=== PATIENT | male | born 1965 | race African-American/Black ===

== ENCOUNTER 2020-12-02 10:31 | Inpatient (IN) | payer SELFPAY ==
[~2020-12-02] VITALS: Ht 167.6 cm; Wt 94.8 kg
[2020-12-02] MEDS ORDERED: ACETAMINOPHEN 325MG TABLET PO STA (10:55)
[2020-12-02] MEDS ORDERED: CEFTRIAXONE 1 G PREMIX 50 ML IV ONE (11:00)
[2020-12-02] MEDS ORDERED: DEXAMETHASONE 10 MG/ML VIAL IV ONE (11:00)
[2020-12-02] MEDS ORDERED: SODIUM CHLORIDE 0.9% 1,000 ML IV ONE (11:00)
[2020-12-02] MEDS ORDERED: AZITHROMYCIN 500 MG in DEXT 5% WATER 250 ML IV ONE (11:00)
[2020-12-02 12:05] LABS: BASOPHILS % 0.3 % (0.0-2.0); HEMATOCRIT. 41.5 % (42.0-52.0); HEMOGLOBIN. 14.3 g/dL (14.0-18.0); LYMPHOCYTES % 9.3 % (20.0-50.0); MEAN CORPUSCULAR HEMOGLOBIN 28.9 pg (28.0-32.0); MEAN CORPUSCULAR VOLUME 83.6 fL (80.0-94.0); MEAN PLATELET VOLUME 7.6 fl (7.4-10.4); NEUTROPHILS % 85.4 % (40.0-76.0); PLATELET 399 x1000/uL (130-400); RED BLOOD CELL COUNT 4.96 mill/uL (4.7-6.1); RED CELL DISTRIBUTION WIDTH 13.2 % (11.6-14.6)
[2020-12-02 12:14] LABS: CHLORIDE 97 mEq/L (98-107)
[2020-12-02 12:52] LABS: D-DIMER 23.66 mg/L FEU (<0.50); INR 1.1; PROTHROMBIN TIME 11.4 sec (9.6-11.0)
[2020-12-02 12:56] LABS: FIBRINOGEN > 900 mg/dL (200-400)
[2020-12-02] MEDS ORDERED: ALBUTEROL 6.7GM HFA INHALER ORI PRN ×2 (14:00→22:15)
[2020-12-02] MEDS ORDERED: CEFTRIAXONE 1 G PREMIX 50 ML IV SCH (14:00)
[2020-12-02] MEDS ORDERED: ENOXAPARIN 40MG/0.4ML SYR SUBCUT SCH (15:00)
[2020-12-02] MEDS ORDERED: ONDANSETRON HCL 4MG/2ML INJ IV PRN (16:30)
[2020-12-02] MEDS ORDERED: LORAZEPAM 2MG/ML CPJ IV PRN (16:30)
[2020-12-02] MEDS ORDERED: HYDRALAZINE 20MG/ML VIAL IV PRN (16:30)
[2020-12-02] MEDS ORDERED: MORPHINE SULFATE 2 MG/ML CPJ (NOT FOR IM USE) IV PRN (16:30)
[2020-12-02] MEDS ORDERED: MAGNESIUM/ALUMINUM HYDROXIDE/SIMETHICONE 30ML UDC PO PRN (16:30)
[2020-12-02] MEDS ORDERED: IPRATROPIUM/ALBUTEROL 0.5-3(2.5)MG/3ML NEB HHN PRN (16:30)
[2020-12-02] MEDS ORDERED: ACETAMINOPHEN 325MG TABLET PO PRN (16:30)
[2020-12-02] MEDS ORDERED: CLONIDINE 0.1MG TABLET PO PRN (16:30)
[2020-12-02] MEDS ORDERED: DIPHENHYDRAMINE 50MG/ML VIAL IV PRN (16:30)
[2020-12-02] MEDS ORDERED: HYDROCODONE/ACETAMINOPHEN 5/325MG TABLET PO PRN (16:30)
[2020-12-02] MEDS ORDERED: DOCUSATE SODIUM 100MG CAPSULE PO PRN (16:30)
[2020-12-02 16:35] VITALS: BP 135/89
[2020-12-02] MEDS: GUAIFENESIN 200MG/10ML SUGAR FREE UDC PO PRN ×2 (18:11→20:18)
[2020-12-02 18:46] LABS: CLARITY URINE CLOUDY (CLEAR); COLOR URINE DARK YELLOW (YELLOW); KETONES URINE TRACE (NEGATIVE); LEUKOCYTE ESTERASE URINE NEGATIVE (NEGATIVE); NITRITE URINE NEGATIVE (NEGATIVE); OCCULT BLOOD URINE 1+ (NEGATIVE); PROTEIN URINE 2+ (NEGATIVE); SPECIFIC GRAVITY URINE 1.027 (1.005-1.030)
[2020-12-02 20:00] VITALS: BP 132/80
[2020-12-02] MEDS: SODIUM CHLORIDE 0.9% INJ 3ML FLUSH IVF SCH (20:12)
[2020-12-03] VITALS: BP 126/78
[2020-12-03] MEDS: SODIUM CHLORIDE 0.9% INJ 3ML FLUSH IVF SCH ×3 (00:03→21:40)
[2020-12-03 04:08] VITALS: BP 128/68
[2020-12-03 06:42] LABS: BASOPHILS % 0.3 % (0.0-2.0); HEMATOCRIT. 35.9 % (42.0-52.0); HEMOGLOBIN. 12.5 g/dL (14.0-18.0); LYMPHOCYTES % 8.1 % (20.0-50.0); MEAN CORPUSCULAR HEMOGLOBIN 28.9 pg (28.0-32.0); MEAN CORPUSCULAR VOLUME 82.8 fL (80.0-94.0); MEAN PLATELET VOLUME 8.5 fl (7.4-10.4); MONOCYTES % 4.1 % (2.0-8.0); NEUTROPHILS % 87.5 % (40.0-76.0); PLATELET 350 x1000/uL (130-400); RED BLOOD CELL COUNT 4.33 mill/uL (4.7-6.1); RED CELL DISTRIBUTION WIDTH 13.2 % (11.6-14.6)
[2020-12-03 06:53] LABS: CHLORIDE 100 mEq/L (98-107)
[2020-12-03 08:00] VITALS: BP 106/67
[2020-12-03] MEDS: DEXAMETHASONE 4MG/ML 1ML VIAL IV SCH (08:36)
[2020-12-03] MEDS: CEFTRIAXONE 1,000 MG in DEXTROSE 5% WATER 50 ML IV SCH (08:37)
[2020-12-03] MEDS: ENOXAPARIN 30MG/0.3ML SYR SUBCUT SCH ×2 (08:37→20:47)
[2020-12-03] MEDS: GUAIFENESIN 200MG/10ML SUGAR FREE UDC PO PRN ×3 (09:22→23:49)
[2020-12-03] MEDS: AZITHROMYCIN 500 MG in DEXT 5% WATER 250 ML IV SCH (09:22)
[2020-12-03] MEDS ORDERED: CEFTRIAXONE 1,000 MG in DEXTROSE 5% WATER 50 ML IV SCH (11:00)
[2020-12-03] MEDS ORDERED: AZITHROMYCIN 500 MG in DEXT 5% WATER 250 ML IV SCH (11:00)
[2020-12-03 12:00] VITALS: BP 144/83
[2020-12-03] MEDS: BENZONATATE 100MG CAPSULE PO PRN ×2 (14:26→23:59)
[2020-12-03 16:00] VITALS: BP 117/82
[2020-12-03 20:00] VITALS: BP 113/68
[2020-12-03] MEDS ORDERED: IOHEXOL-350 100 ML BOTTLE ONE (23:29)
[2020-12-04] VITALS: BP 105/70
[2020-12-04] MEDS ORDERED: ENOXAPARIN 80MG/0.8ML SYR SUBCUT SCH (02:00)
[2020-12-04] MEDS: GUAIFENESIN 200MG/10ML SUGAR FREE UDC PO PRN ×3 (03:50→21:03)
[2020-12-04 04:00] VITALS: BP 112/76
[2020-12-04] MEDS: SODIUM CHLORIDE 0.9% INJ 3ML FLUSH IVF SCH ×3 (05:50→21:01)
[2020-12-04 06:31] LABS: BASOPHILS % 0.3 % (0.0-2.0); HEMATOCRIT. 38.2 % (42.0-52.0); HEMOGLOBIN. 13.1 g/dL (14.0-18.0); LYMPHOCYTES % 9.2 % (20.0-50.0); MEAN CORPUSCULAR HEMOGLOBIN 28.5 pg (28.0-32.0); MEAN PLATELET VOLUME 8.1 fl (7.4-10.4); MONOCYTES % 3.4 % (2.0-8.0); NEUTROPHILS % 87.1 % (40.0-76.0); PLATELET 371 x1000/uL (130-400); RED CELL DISTRIBUTION WIDTH 13.2 % (11.6-14.6)
[2020-12-04 06:48] LABS: CHLORIDE 101 mEq/L (98-107)
[2020-12-04 08:00] VITALS: BP 120/81
[2020-12-04] MEDS: CEFTRIAXONE 1,000 MG in DEXTROSE 5% WATER 50 ML IV SCH (08:32)
[2020-12-04] MEDS: DEXAMETHASONE 4MG/ML 1ML VIAL IV SCH (08:32)
[2020-12-04] MEDS: AZITHROMYCIN 500 MG in DEXT 5% WATER 250 ML IV SCH (09:28)
[2020-12-04 11:39] VITALS: BP 129/86
[2020-12-04] MEDS: BENZONATATE 100MG CAPSULE PO PRN ×2 (14:44→22:43)
[2020-12-04 16:00] VITALS: BP 114/67
[2020-12-04] MEDS: ENOXAPARIN 100MG/ML SYR SUBCUT SCH (17:19)
[2020-12-04 20:00] VITALS: BP 122/80
[2020-12-05 00:24] VITALS: BP 113/66
[2020-12-05 04:36] VITALS: BP 110/66
[2020-12-05] MEDS: ENOXAPARIN 100MG/ML SYR SUBCUT SCH ×2 (05:45→17:15)
[2020-12-05] MEDS: SODIUM CHLORIDE 0.9% INJ 3ML FLUSH IVF SCH ×3 (05:46→21:00)
[2020-12-05 06:51] LABS: HEMOGLOBIN. 13.2 g/dL (14.0-18.0); MEAN CORPUSCULAR HEMOGLOBIN 28.8 pg (28.0-32.0); MEAN CORPUSCULAR VOLUME 82.9 fL (80.0-94.0); MEAN PLATELET VOLUME 7.9 fl (7.4-10.4); PLATELET 353 x1000/uL (130-400); RED BLOOD CELL COUNT 4.58 mill/uL (4.7-6.1); RED CELL DISTRIBUTION WIDTH 12.9 % (11.6-14.6)
[2020-12-05 07:02] LABS: CHLORIDE 100 mEq/L (98-107)
[2020-12-05 08:00] VITALS: BP 101/60
[2020-12-05] MEDS: DEXAMETHASONE 4MG/ML 1ML VIAL IV SCH (08:30)
[2020-12-05] MEDS: GUAIFENESIN 200MG/10ML SUGAR FREE UDC PO PRN ×2 (08:31→21:00)
[2020-12-05] MEDS: CEFTRIAXONE 1,000 MG in DEXTROSE 5% WATER 50 ML IV SCH (08:31)
[2020-12-05] MEDS: AZITHROMYCIN 500 MG in DEXT 5% WATER 250 ML IV SCH (10:19)
[2020-12-05 12:00] VITALS: BP 96/68
[2020-12-05 16:00] VITALS: BP 109/65
[2020-12-05] MEDS: PROMETHAZINE/DEXTROMETHORPHAN 6.25-15MG/5ML BOTTLE 120ML PO PRN ×2 (17:16→23:30)
[2020-12-05 20:00] VITALS: BP 111/76
[2020-12-05 23:43] LABS: PLATELET ESTIMATE NORMAL
[2020-12-06] VITALS: BP 100/70
[2020-12-06 04:00] VITALS: BP 96/62
[2020-12-06] MEDS: PROMETHAZINE/DEXTROMETHORPHAN 6.25-15MG/5ML BOTTLE 120ML PO PRN ×2 (05:43→12:04)
[2020-12-06] MEDS: ENOXAPARIN 100MG/ML SYR SUBCUT SCH ×2 (05:43→17:16)
[2020-12-06] MEDS: SODIUM CHLORIDE 0.9% INJ 3ML FLUSH IVF SCH ×3 (05:43→20:14)
[2020-12-06 08:00] VITALS: BP 112/65
[2020-12-06] MEDS: BENZONATATE 100MG CAPSULE PO PRN ×2 (08:40→20:14)
[2020-12-06] MEDS: CEFTRIAXONE 1,000 MG in DEXTROSE 5% WATER 50 ML IV SCH (08:40)
[2020-12-06] MEDS: DEXAMETHASONE 4MG/ML 1ML VIAL IV SCH (08:41)
[2020-12-06] MEDS: GUAIFENESIN 200MG/10ML SUGAR FREE UDC PO PRN (08:52)
[2020-12-06] MEDS: AZITHROMYCIN 500 MG in DEXT 5% WATER 250 ML IV SCH (08:52)
[2020-12-06 12:00] VITALS: BP 112/79
[2020-12-06 16:00] VITALS: BP 110/71
[2020-12-06] MEDS ORDERED: ERGOCALCIFEROL 50000UNITS CAPSULE PO SCH (16:00)
[2020-12-06 20:00] VITALS: BP 122/62
[2020-12-06] MEDS: ASCORBIC ACID 500 MG TABLET PO SCH (20:14)
[2020-12-07] VITALS: BP 115/79
[2020-12-07 04:00] VITALS: BP 100/61
[2020-12-07] MEDS: ENOXAPARIN 100MG/ML SYR SUBCUT SCH ×2 (05:18→17:05)
[2020-12-07] MEDS: SODIUM CHLORIDE 0.9% INJ 3ML FLUSH IVF SCH ×3 (05:19→21:17)
[2020-12-07 08:00] VITALS: BP 125/85
[2020-12-07] MEDS: ASCORBIC ACID 500 MG TABLET PO SCH ×2 (08:37→21:17)
[2020-12-07] MEDS: CEFTRIAXONE 1,000 MG in DEXTROSE 5% WATER 50 ML IV SCH (08:37)
[2020-12-07] MEDS: DEXAMETHASONE 4MG/ML 1ML VIAL IV SCH (08:37)
[2020-12-07 12:00] VITALS: BP 109/74
[2020-12-07] MEDS: GUAIFENESIN 200MG/10ML SUGAR FREE UDC PO PRN (12:30)
[2020-12-07 16:00] VITALS: BP 124/93
[2020-12-07 20:00] VITALS: BP 119/80
[2020-12-07] MEDS: BENZONATATE 100MG CAPSULE PO PRN (21:17)
[2020-12-08] VITALS: BP 98/60
[2020-12-08 04:00] VITALS: BP 103/66
[2020-12-08] MEDS: SODIUM CHLORIDE 0.9% INJ 3ML FLUSH IVF SCH (05:11)
[2020-12-08] MEDS: ENOXAPARIN 100MG/ML SYR SUBCUT SCH (05:11)
[2020-12-08 08:00] VITALS: BP 127/74
[2020-12-08] MEDS: DEXAMETHASONE 4MG/ML 1ML VIAL IV SCH (09:00)
[2020-12-08] MEDS: ASCORBIC ACID 500 MG TABLET PO SCH (09:00)
[2020-12-08 12:00] VITALS: BP 106/75
[2020-12-08 13:48] VITALS: BP 106/75
== END 2020-12-08 14:45 | disposition home or self-care (01) | DRG 720 ==
LOC: EDBD 10:31 → ER 10:54 → 7WST 13:04 → EDBEDREQ 13:08 → EDBEDREQTM 13:08 → ENRESERV 15:07 → 7WST 12-05 08:47
PROVIDERS: ADMIT Internal Medicine; ATTEND Internal Medicine
DX: A41.89 Other specified sepsis (principal); U07.1 COVID-19; I26.99 Other pulmonary embolism without acute cor pulmonale; R79.89 Other specified abnormal findings of blood chemistry; J12.82 Pneumonia due to coronavirus disease 2019; E86.0 Dehydration; E46 Unspecified protein-calorie malnutrition; J96.00 Acute respiratory failure, unspecified whether with hypoxia or hypercapnia; Z68.33 Body mass index [BMI] 33.0-33.9, adult
CPT/HCPCS: 36415; 71045; 71275; 80048; 80053; 81003; 82728; 83605; 83615; 83880; 84145; 84484; 85025; 85379; 85384; 86140; 87426; 93005; 93970; 94640; 99291; J0456; J0696; J1100; J1650; J2060; J7030; J7040; J7060; Q9967; U0003; U0005

== ENCOUNTER 2020-12-15 10:14 | Inpatient (IN) | payer MEDICAID ==
[~2020-12-15] VITALS: Ht 167.6 cm; Wt 89.4 kg
[2020-12-15] MEDS ORDERED: KETOROLAC 30MG/ML VIAL IV ONE (10:45)
[2020-12-15 11:32] LABS: BASOPHILS % 0.7 % (0.0-2.0); EOSINOPHILS % 1.2 % (0.0-5.0); HEMATOCRIT. 36.1 % (42.0-52.0); HEMOGLOBIN. 12.1 g/dL (14.0-18.0); LYMPHOCYTES % 19.7 % (20.0-50.0); MEAN CORPUSCULAR HEMOGLOBIN 28.5 pg (28.0-32.0); MEAN CORPUSCULAR VOLUME 85.1 fL (80.0-94.0); MEAN PLATELET VOLUME 7.2 fl (7.4-10.4); MONOCYTES % 12.4 % (2.0-8.0); PLATELET 302 x1000/uL (130-400); RED BLOOD CELL COUNT 4.25 mill/uL (4.7-6.1); RED CELL DISTRIBUTION WIDTH 13.3 % (11.6-14.6)
[2020-12-15 11:36] LABS: CHLORIDE 103 mEq/L (98-107)
[2020-12-15] MEDS ORDERED: LEVOFLOXACIN 750MG PREMIX 150 ML IV ONE (12:15)
[2020-12-15 13:41] LABS: BG BASE EXCESS 3.7 mmol/L (-2.0-2.0); BG CARBOXYHEMOGLOBIN 0.6 % (0.5-1.5); BG DEOXYHEMOGLOBIN 5.6 % (0.0-5.0); BG FRACTION INSPIRED OXYGEN 21; BG HCO3 ACT 27.6 mmol/L (22.0-26.0); BG METHEMOGLOBIN 0.1 % (0.0-1.5); BG OXYGEN SATURATION 94.4 % (92.0-98.5); BG OXYHEMOGLOBIN 93.7 % (94.0-97.0); BG PCO2 39.1 mmHg (35.0-45.0); BG PH 7.466 (7.350-7.450); BG PO2 65.9 mmHg (75.0-100.0); BG SAMPLE SITE LEFT RADIAL; BG TOTAL HEMOGLOBIN 13.6 g/dL (12.0-18.0); BG VENT MODE ROOM AIR
[2020-12-15 17:40] VITALS: BP 110/77
[2020-12-15] MEDS ORDERED: ASCO500C15 MT (17:47)
[2020-12-15] MEDS ORDERED: ALBU6.7H9 INH (17:47)
[2020-12-15] MEDS ORDERED: ASPI-1497 PO (17:47)
[2020-12-15 17:49] VITALS: BP 110/77
[2020-12-15] MEDS ORDERED: CEFTRIAXONE 1 G PREMIX 50 ML IV SCH (19:00)
[2020-12-15] MEDS ORDERED: ONDANSETRON HCL 4MG/2ML INJ IV PRN (19:00)
[2020-12-15] MEDS ORDERED: ENOXAPARIN 40MG/0.4ML SYR SUBCUT SCH (19:00)
[2020-12-15] MEDS ORDERED: AZITHROMYCIN 500 MG in DEXT 5% WATER 250 ML IV SCH ×2 (19:00→21:00)
[2020-12-15] MEDS ORDERED: MAGNESIUM/ALUMINUM HYDROXIDE/SIMETHICONE 30ML UDC PO PRN (19:00)
[2020-12-15] MEDS ORDERED: CLONIDINE 0.1MG TABLET PO PRN (19:00)
[2020-12-15] MEDS ORDERED: ACETAMINOPHEN 325MG TABLET PO PRN (19:00)
[2020-12-15] MEDS: GUAIFENESIN-DM 200MG-20MG/10ML UDC PO PRN (19:53)
[2020-12-15] MEDS: ENOXAPARIN 100MG/ML SYR SUBCUT SCH (19:54)
[2020-12-15 20:00] VITALS: BP 118/81
[2020-12-15] MEDS ORDERED: CEFTRIAXONE 1,000 MG in DEXTROSE 5% WATER 50 ML IV SCH (20:00)
[2020-12-16] VITALS: BP 114/78
[2020-12-16] MEDS: GUAIFENESIN-DM 200MG-20MG/10ML UDC PO PRN ×2 (03:01→09:15)
[2020-12-16 04:00] VITALS: BP 112/71
[2020-12-16 06:32] LABS: INR 1.1; PROTHROMBIN TIME 11.9 sec (9.6-11.0)
[2020-12-16 06:38] LABS: CHLORIDE 105 mEq/L (98-107)
[2020-12-16 06:41] LABS: BASOPHILS % 0.4 % (0.0-2.0); EOSINOPHILS % 1.4 % (0.0-5.0); HEMATOCRIT. 35.9 % (42.0-52.0); LYMPHOCYTES % 26.1 % (20.0-50.0); MEAN CORPUSCULAR HEMOGLOBIN 28.6 pg (28.0-32.0); MEAN CORPUSCULAR VOLUME 85.6 fL (80.0-94.0); MONOCYTES % 13.5 % (2.0-8.0); NEUTROPHILS % 58.6 % (40.0-76.0); PLATELET 269 x1000/uL (130-400); RED CELL DISTRIBUTION WIDTH 13.3 % (11.6-14.6)
[2020-12-16 08:58] VITALS: BP 115/67
[2020-12-16] MEDS ORDERED: ASPIRIN 81MG EC TABLET PO SCH (09:00)
[2020-12-16] MEDS: ENOXAPARIN 100MG/ML SYR SUBCUT SCH (09:15)
[2020-12-16 11:50] VITALS: BP 129/79
[2020-12-16 12:00] VITALS: BP 129/79
[2020-12-16] MEDS ORDERED: APIXABAN 5 MG TABLET PO SCH (17:00)
[2020-12-16] MEDS ORDERED: AZITHROMYCIN 500 MG TABLET PO SCH (21:00)
== END 2020-12-16 12:40 | disposition home or self-care (01) | DRG 134 ==
LOC: ER 10:14 → 7WST 13:24 → ENRESERV 15:08 → 8WST 22:56
PROVIDERS: ADMIT Hospitalist; ATTEND Hospitalist
DX: I26.99 Other pulmonary embolism without acute cor pulmonale (principal); J96.00 Acute respiratory failure, unspecified whether with hypoxia or hypercapnia; J18.9 Pneumonia, unspecified organism; D68.59 Other primary thrombophilia; B94.8 Sequelae of other specified infectious and parasitic diseases; M54.5 Low back pain; R05 Cough; Z20.822 Contact with and (suspected) exposure to COVID-19; Z86.711 Personal history of pulmonary embolism; Z79.82 Long term (current) use of aspirin; Z79.899 Other long term (current) drug therapy
CPT/HCPCS: 36415; 36600; 71045; 80053; 82375; 82805; 85025; 87426; 93005; 99285; J0456; J0696; J1650; J1885; J1956; J7040; J7060

== ENCOUNTER 2021-06-26 06:46 | Emergency (ER) | payer MEDICAID ==
[~2021-06-26] VITALS: Ht 167.6 cm; Wt 95.0 kg
[~2021-06-26 06:46] MED LIST: ALBU6.7H9 INH; ASCO500C15 MT; ASPI-1497 PO
[2021-06-26 07:19] VITALS: BP 143/84
[2021-06-26] MEDS ORDERED: ACETAMINOPHEN WITH CODEINE 300/30MG TABLET PO ONE (07:45)
[2021-06-26] MEDS ORDERED: TOPUD PO (09:58)
== END 2021-06-26 10:39 | disposition home or self-care (01) ==
LOC: ER 06:46
DX: R10.31 Right lower quadrant pain (principal)
CPT/HCPCS: 76870; 93976; 99284

== ENCOUNTER 2022-01-28 20:45 | Emergency (ER) | payer MEDICAID ==
[~2022-01-28] VITALS: Ht 167.6 cm; Wt 100.0 kg
[~2022-01-28 20:45] MED LIST changes: +TOPUD PO
[2022-01-28 23:12] VITALS: BP 112/64
== END 2022-01-28 23:12 | disposition home or self-care (01) ==
LOC: ER 20:45
DX: T16.2XXA Foreign body in left ear, initial encounter (principal); X58.XXXA Exposure to other specified factors, initial encounter; Y93.E8 Activity, other personal hygiene; Y92.018 Other place in single-family (private) house as the place of occurrence of the external cause
CPT/HCPCS: 69200; 99284

== ENCOUNTER 2023-07-16 23:48 | Emergency (ER) | payer MEDICAID ==
[~2023-07-16] VITALS: Ht 167.6 cm; Wt 111.2 kg
[~2023-07-16 23:48] MED LIST changes: +ALBU6.7H3 INH; -ALBU6.7H9 INH
[2023-07-17 00:20] VITALS: BP 135/87; TEMP 98.2
[2023-07-17 02:39] LABS: BASOPHILS % 0.4 % (0.0-2.0); EOSINOPHILS % 7.8 % (0.0-5.0); HEMATOCRIT. 43.5 % (42.0-52.0); HEMOGLOBIN. 14.9 g/dL (14.0-18.0); LYMPHOCYTES % 32.9 % (20.0-50.0); MEAN CORPUSCULAR HEMOGLOBIN 28.9 pg (28.0-32.0); MEAN CORPUSCULAR HGB CONC 34.3 g/dL (31.0-37.0); MEAN CORPUSCULAR VOLUME 84.2 fL (80.0-94.0); MEAN PLATELET VOLUME 7.8 fl (7.4-10.4); MONOCYTES % 8.3 % (2.0-8.0); NEUTROPHILS % 50.6 % (40.0-76.0); PLATELET 276 x1000/uL (130-400); RED BLOOD CELL COUNT 5.17 mill/uL (4.7-6.1); RED CELL DISTRIBUTION WIDTH 13.9 % (11.6-14.6); WHITE BLOOD COUNT 9.7 x1000/uL (4.5-11.0)
[2023-07-17 02:52] LABS: ALANINE AMINOTRANSFERASE 28 IU/L (10-49); ALBUMIN 4.3 g/dL (3.2-4.8); ASPARTATE AMINOTRANSFERASE 28 IU/L (<34); BILIRUBIN TOTAL 0.5 mg/dL (0.1-1.0); CALCIUM 9.1 mg/dL (8.7-10.4); CARBON DIOXIDE 30 mEq/L (21-32); CHLORIDE 103 mEq/L (98-107); GLUCOSE 95 mg/dL (70-105); POTASSIUM 4.3 mEq/L (3.5-5.1); PROTEIN TOTAL 7.9 g/dL (6.0-8.3); SODIUM 138 mEq/L (136-145); UREA NITROGEN BLOOD 16 mg/dL (9-23)
[2023-07-17 03:06] LABS: TROPONIN I HIGH SENSITIVITY < 4 ng/L (3.0-53)
[2023-07-17] MEDS ORDERED: DEXAMETHASONE 10 MG/ML VIAL PO ONE (03:30)
[2023-07-17] MEDS ORDERED: IPRATROPIUM/ALBUTEROL 0.5-3(2.5)MG/3ML NEB HHN ONE (03:30)
[2023-07-17 03:49] VITALS: PULSE 89; RESP 18; O2SAT 97
[2023-07-17] MEDS ORDERED: PRED10TA23 MT (04:23)
== END 2023-07-17 05:56 | disposition home or self-care (01) ==
LOC: ER 23:50
DX: R05.9 Cough, unspecified (principal); R06.2 Wheezing
CPT/HCPCS: 94640; 99285; 80053; 85025; 84484; 36415; 71045; 93005; Z7610 ×3